=== PATIENT | female | born 1990 | race Caucasian/White ===

== ENCOUNTER 2023-06-18 10:34 | Emergency (ER) | payer OTHER ==
[~2023-06-18] VITALS: Ht 157.5 cm; Wt 73.9 kg
[2023-06-18] MEDS ORDERED: ACETAMINOPHEN 325 MG TAB PO ONE (12:55)
[2023-06-18 13:39] LABS: BASO % 0.2 % (0.0-1.0); EOS # 0.1 10^3/uL (0.0-0.5); EOS % 0.6 % (0.0-3.0); HEMATOCRIT 37.7 % (36.0-47.0); HEMOGLOBIN 12.2 g/dl (12.0-15.5); LYMPH # 2.5 10^3/uL (1.5-5.0); MEAN CORPUSCULAR HEMOGLOBIN 28.3 pg (27.0-33.0); MEAN CORPUSCULAR HGB CONC 32.4 g/dl (32.0-36.5); MEAN CORPUSCULAR VOLUME 87.5 fl (80.0-96.0); MONO # 0.9 10^3/uL (0.0-0.8); NEUTROPHILS # 9.4 10^3/uL (1.5-8.5); NEUTROPHILS % 72.7 % (36.0-66.0); PLATELET COUNT, AUTOMATED 240 10^3/uL (150-450); RED BLOOD COUNT 4.31 10^6/uL (4.00-5.40)
[2023-06-18 15:00] VITALS: BP 106/65; TEMP 98.1; O2SAT 99
[2023-06-18 15:06] LABS: LIPASE 29 U/L (12-53)
[2023-06-18 15:08] LABS: RSV AMPLIFICATION NEGATIVE (NEGATIVE)
[2023-06-18 15:09] LABS: CPK CREATINE PHOSPHOKINASE 44 U/L (34-145)
[2023-06-18 15:13] LABS: ALBUMIN 2.4 G/DL (3.2-5.2); ALKALINE PHOSPHATASE 110 U/L (46-116); ALT/SGPT 14 U/L (7.0-40); AST/SGOT 15 U/L (<34); BILIRUBIN,DIRECT < 0.1 MG/DL (<0.4); BILIRUBIN,TOTAL 0.4 MG/DL (0.3-1.2); BLOOD UREA NITROGEN 7 MG/DL (9-23); CALCIUM LEVEL 8.1 MG/DL (8.5-10.1); CARBON DIOXIDE LEVEL 23 MMOL/L (20-31); CHLORIDE LEVEL 108 MMOL/L (98-107); CK-MB VALUE MASS < 1.0 NG/ML (<3.6); FREE T4 0.93 NG/DL (0.89-1.76); GLOMERULAR FILTRATION RATE > 60.0 (>60); GLUCOSE, FASTING 79 MG/DL (60-100); MB/CK RELATIVE INDEX 2.27 (< OR =4); POTASSIUM SERUM 3.9 MMOL/L (3.5-5.1); SODIUM LEVEL 134 MMOL/L (136-145); THYROID STIMULATING HORMONE 1.789 uIU/ML (0.55-4.78); TOTAL PROTEIN 5.4 G/DL (5.7-8.2)
== END 2023-06-18 15:15 | disposition left against medical advice (07) ==
LOC: M ED 10:34
DX: R07.89 Other chest pain (principal); Z53.9 Procedure and treatment not carried out, unspecified reason

== ENCOUNTER 2023-06-27 22:56 | Outpatient (CLI) | payer OTHER ==
[~2023-06-27] VITALS: Ht 157.5 cm; Wt 72.5 kg
[2023-06-27 23:23] VITALS: BP 121/71
[2023-06-28 00:45] VITALS: BP 105/64
[2023-06-28] MEDS ORDERED: PRENTAB9 PO (01:10)
[2023-06-28] MEDS ORDERED: LR 1,000 ML IV ONE (01:10)
[2023-06-28] MEDS ORDERED: TUMS750C5 PO (01:10)
[2023-06-28] MEDS ORDERED: ACET-897 PO (01:10)
== END 2023-06-28 01:20 | disposition home or self-care (01) ==
LOC: M LDO 22:56
PROVIDERS: ATTEND Obstetrics & Gynecology
DX: O47.1 False labor at or after 37 completed weeks of gestation (principal); O40.3XX0 Polyhydramnios, third trimester, not applicable or unspecified; Z3A.38 38 weeks gestation of pregnancy; O34.219 Maternal care for unspecified type scar from previous cesarean delivery
CPT/HCPCS: 59025; G0463

== ENCOUNTER 2023-07-01 01:16 | Inpatient (IN) | payer OTHER ==
[~2023-07-01] VITALS: Ht 157.5 cm; Wt 73.9 kg
[2023-07-01] VITALS (57 sets, daily range): BP systolic 84–149; BP diastolic 50–97; O2SAT 98
[~2023-07-01 01:16] MED LIST: ACET-897 PO; PRENTAB9 PO; TUMS750C5 PO
[2023-07-01] MEDS ORDERED: LACTATED RINGER'S 1000 ML IV STA (02:21)
[2023-07-01] MEDS ORDERED: LIDOCAINE 1% MDV 20ML VIAL INFIL PRN (02:25)
[2023-07-01] MEDS ORDERED: TRANEXAMIC ACID INJection 1,000 MG in NS 100 ML IV PRN (02:25)
[2023-07-01] MEDS ORDERED: OXYTOCIN DRIP 30 UNITS in IV 1 EA IV PRN ×6 (02:25)
[2023-07-01] MEDS ORDERED: OXYTOCIN DRIP 30 UNITS in IV 1 EA IV SCH ×2 (02:25→16:40)
[2023-07-01] MEDS ORDERED: OXYTOCIN INJ 10UNITS/ML 1ML VIAL IM PRN (02:25)
[2023-07-01] MEDS ORDERED: miSOPROStol 50MCG 1/2 TABLET PO PRN (02:25)
[2023-07-01] MEDS ORDERED: OXYTOCIN INJ 10UNITS/ML 1ML VIAL IV PRN (02:25)
[2023-07-01] MEDS ORDERED: LR 1,000 ML IV SCH ×3 (02:25→16:40)
[2023-07-01] MEDS ORDERED: CARBOPROST TROMETHAMINE 250 MCG/ML AMP IM PRN (02:25)
[2023-07-01 02:49] LABS: HEMATOCRIT 33.6 % (36.0-47.0); HEMOGLOBIN 11.2 g/dl (12.0-15.5); MEAN CORPUSCULAR HEMOGLOBIN 29.1 pg (27.0-33.0); MEAN CORPUSCULAR HGB CONC 33.3 g/dl (32.0-36.5); MEAN CORPUSCULAR VOLUME 87.3 fl (80.0-96.0); PLATELET COUNT, AUTOMATED 248 10^3/uL (150-450); RED BLOOD COUNT 3.85 10^6/uL (4.00-5.40); WHITE BLOOD COUNT 12.8 10^3/uL (4.0-10.0)
[2023-07-01] MEDS ORDERED: EPIDURAL/PCA KEYS XX PRN (11:10)
[2023-07-01] MEDS ORDERED: FENTANYL/ROPIVACAINE/NACL BAG 100 ML EPIDURAL SCH (11:10)
[2023-07-01] MEDS ORDERED: ONDANSETRON 4MG 2ML VIAL IV PRN ×2 (11:10→16:40)
[2023-07-01] MEDS ORDERED: NALOXONE INJ 0.4MG/1ML VIAL IV PRN (11:10)
[2023-07-01] MEDS ORDERED: LR 500 ML IV PRN (11:10)
[2023-07-01] MEDS ORDERED: ePHEDrine SULFATE 25 MG/5 ML(5MG/ML) SYRINGE IVP PRN (11:10)
[2023-07-01] MEDS ORDERED: diphenhydrAMINE 50MG/ML VIAL IV PRN (11:10)
[2023-07-01] MEDS ORDERED: REFLB XX ONE (11:18)
[2023-07-01 16:28] LABS: CORD GAS ABE V -10.8; CORD GAS HCO3 V 17.5 MMOL/L; CORD GAS O2 SAT V 59.4 %; CORD GAS PCO2 V 48.1 mmHg; CORD GAS PH V 7.179 UNITS; CORD GAS PO2 V 30.9 mmHg; CORD GAS SBC V 15.3 MMOL/L
[2023-07-01] MEDS ORDERED: DOCUSATE SODIUM 100MG CAPSULE PO PRN (16:40)
[2023-07-01] MEDS ORDERED: DIBUCAINE 1% OINTMENT 30GM TOP PRN (16:40)
[2023-07-01] MEDS ORDERED: ACETAMINOPHEN TAB 650MG DOSE (2X325MG) PO PRN (16:40)
[2023-07-01] MEDS ORDERED: METOCLOPRAMIDE INJ 10MG/2ML VIAL IV PRN (16:40)
[2023-07-01] MEDS ORDERED: METHYLERGONOVINE MALEATE 0.2MG/ML 1ML VIAL IM PRN (16:40)
[2023-07-01] MEDS ORDERED: IBUPROFEN 600MG TAB PO PRN (16:40)
[2023-07-01] MEDS ORDERED: RHOGAM 300MCG (1500IU) INJ IM SCH (16:40)
[2023-07-01] MEDS ORDERED: OXYTOCIN 30UNITS IN 0.9% NaCl 500ML IV BAG As Ordered ONE (16:41)
[2023-07-01] MEDS: IBUPROFEN 800 MG TAB PO PRN (17:51)
[2023-07-01] MEDS: ACETAMINOPHEN 500 MG TAB PO PRN (18:12)
[2023-07-02] MEDS: IBUPROFEN 800 MG TAB PO PRN (02:10)
[2023-07-02 06:09] VITALS: BP 104/58; O2SAT 99
[2023-07-02] MEDS ORDERED: PRENATAL VITAMINS CHEWABLE TABLET PO SCH (09:00)
[2023-07-02] MEDS: ACETAMINOPHEN 500 MG TAB PO PRN (17:02)
[2023-07-03] MEDS ORDERED: MEASLES,MUMPS,RUBELLA VACCINE INJ (MMR-II) SC.IMMUN ONE (09:00)
== END 2023-07-02 18:17 | disposition home or self-care (01) | DRG 807 ==
LOC: M LDO 01:16 → M LDI 01:50 → M OBS 18:23
PROVIDERS: ADMIT Obstetrics & Gynecology; ATTEND Obstetrics & Gynecology
PROC: 10E0XZZ Delivery of Products of Conception, External Approach (ICD-10-PCS; principal; 2023-07-01)
PROC: 0HQ9XZZ Repair Perineum Skin, External Approach (ICD-10-PCS; 2023-07-01)
PROC: 10907ZC Drainage of Amniotic Fluid, Therapeutic from Products of Conception, Via Natural or Artificial Opening (ICD-10-PCS; 2023-07-01)
PROC: 3E033VJ Introduction of Other Hormone into Peripheral Vein, Percutaneous Approach (ICD-10-PCS; 2023-07-01)
PROC: 3E0P7VZ Introduction of Hormone into Female Reproductive, Via Natural or Artificial Opening (ICD-10-PCS; 2023-07-01)
DX: O40.3XX0 Polyhydramnios, third trimester, not applicable or unspecified (principal); Z37.0 Single live birth; Z3A.39 39 weeks gestation of pregnancy; O70.0 First degree perineal laceration during delivery